=== PATIENT | male | born 1945 | race Caucasian/White ===

== ENCOUNTER 2024-10-17 14:27 | Outpatient (CLI) | payer BC | END 2024-10-17 14:28 | disposition home or self-care (01) | LOC: CSHULT 14:27 | PROVIDERS: ATTEND Internal Medicine | DX: R13.10 Dysphagia, unspecified (principal) | CPT/HCPCS: 76536 ==

== ENCOUNTER 2025-05-15 11:05 | Outpatient (CLI) | payer BC | END 2025-05-15 11:06 | disposition home or self-care (01) | LOC: CJX 11:05 | PROVIDERS: ATTEND Internal Medicine | DX: M54.16 Radiculopathy, lumbar region (principal); M48.061 Spinal stenosis, lumbar region without neurogenic claudication; M48.07 Spinal stenosis, lumbosacral region | CPT/HCPCS: 72148 ==